=== PATIENT | female | born 1965 | race American Indian/Alaskan Native ===

== ENCOUNTER 2017-07-21 13:33 | Emergency (ER) | payer OTHER, BC ==
[~2017-07-21] VITALS: Ht 172.7 cm; Wt 110.2 kg
[2017-07-21 13:43] VITALS: TEMP 97.9
[2017-07-21 14:50] LABS: PLATELET COUNT 322 K/uL (152-353)
[2017-07-21 14:55] LABS: POTASSIUM 3.8 mmol/L (3.6-5.2)
[2017-07-21 16:05] VITALS: BP 136/82
== END 2017-07-21 14:05 | disposition home or self-care (01) ==
LOC: ED 13:33
PROVIDERS: Family Medicine
DX: S29.9XXA Unspecified injury of thorax, initial encounter (principal); W19.XXXA Unspecified fall, initial encounter; Y92.219 Unspecified school as the place of occurrence of the external cause
CPT/HCPCS: 80048; 85027; 99283

== ENCOUNTER 2017-07-23 15:47 | Emergency (ER) | payer OTHER, BC ==
[~2017-07-23] VITALS: Ht 172.7 cm; Wt 110.2 kg
[2017-07-23 18:05] VITALS: BP 131/60; TEMP 98
== END 2017-07-23 18:05 | disposition home or self-care (01) ==
LOC: ED 15:47
DX: R22.1 Localized swelling, mass and lump, neck (principal); W18.39XA Other fall on same level, initial encounter
CPT/HCPCS: 99282; L0120

== ENCOUNTER 2017-08-04 15:31 | Outpatient (CLI) | payer OTHER, BC | END 2017-08-04 21:08 | disposition home or self-care (01) | LOC: RAD 15:31 | DX: R07.89 Other chest pain (principal) ==

== ENCOUNTER 2019-12-31 13:54 | Outpatient (CLI) | payer BC | END 2019-12-31 20:34 | disposition home or self-care (01) | LOC: RAD 13:54 | DX: M54.2 Cervicalgia (principal) ==

== ENCOUNTER 2020-11-08 15:15 | Emergency (ER) | payer BC ==
[~2020-11-08] VITALS: Ht 172.7 cm; Wt 101.2 kg
[2020-11-08 15:20] VITALS: TEMP 97.35
[2020-11-08 16:10] VITALS: BP 137/86
== END 2020-11-08 16:11 | disposition home or self-care (01) ==
LOC: ED 15:15
DX: S16.1XXA Strain of muscle, fascia and tendon at neck level, initial encounter (principal); T14.8XXA Other injury of unspecified body region, initial encounter; V53.5XXA Driver of pick-up truck or van injured in collision with car, pick-up truck or van in traffic accident, initial encounter; Y92.89 Other specified places as the place of occurrence of the external cause
CPT/HCPCS: 99281

== ENCOUNTER 2021-09-30 10:08 | Outpatient (CLI) | payer BC | END 2021-09-30 19:20 | disposition home or self-care (01) | LOC: MAMMO 10:08 | PROVIDERS: ATTEND Nurse Practitioner Family | DX: Z12.31 Encounter for screening mammogram for malignant neoplasm of breast (principal) ==